=== PATIENT | female | born 1950 | race American Indian/Alaskan Native ===

== ENCOUNTER 2019-04-10 10:32 | Emergency (ER) | payer MEDICARE ==
[2019-04-10 10:57] VITALS: BP 160/76
--- NOTE | 2019-04-10 11:10 | Emergency Department Report ---
Chief Complaint: Upper Respiratory Infection Stated Complaint: FLU LIKE SYMPTOMS/SOB Time Seen by Provider: 04/10/19 10:55 - HPI History of Present Illness: 68 y/o female comes in for 1 day history of cold like symptom. Has no fever good appetite. History of cholesterol. Mild cough and laryngitis. Has only took1 dose of OTC cold medicine. - Exam Vital Signs: Vital Signs 04/10/19 10:55 Temperature 98 F Pulse Rate 104 H Respiratory 18 Rate Blood Pressure 160/76 O2 Sat by Pulse 99 Oximetry Physical Exam: AxO times 3 Heart: RRR pulse 96 Resp: CTA no coughing. Throat non erythmatous non edematous. Psych: stable mood. MSE screening note: Focused history and physical exam performed. Due to findings the following was ordered: Discuss with patient to increase fluids, Take OTC cold and flu medicine. Throat rest and warm salt gargles. ED Disposition for MSE Clinical Impression: Allergic rhinitis Qualifiers: Allergic rhinitis trigger: other Allergic rhinitis seasonality: unspecified Qualified Code(s): J30.89 - Other allergic rhinitis Disposition: DC-01 TO HOME OR SELFCARE Is pt being admited?: No Does the pt Need Aspirin: No Condition: Stable Instructions: Allergic Rhinitis (ED) Additional Instructions: Increase fluid inatke. Rest throat use warm salt water gargles. Take OTC cold medicine for symptoms. Referrals: Your, Provider [Other] - 3-5 Days
== END 2019-04-10 11:30 | disposition home or self-care (01) ==
LOC: ED 10:32
DX: J30.9 Allergic rhinitis, unspecified (principal); Z88.5 Allergy status to narcotic agent
CPT/HCPCS: 99282

== ENCOUNTER 2021-01-21 14:15 | Emergency (ER) | payer MEDICARE, BC ==
--- NOTE | 2021-01-21 14:51 | Emergency Department Report ---
Blank Doc - Documentation Documentation: 70-year-old female presents with acute vertigo. Denies any head injuries or t rauma. Exam: Neuro exam unremarkable. No facial drooping. No one-sided weakness. DARNELL. CARINA. 1- This initial assessment/diagnostic orders/clinical plan/ treatment(s) is/are subject to change based on pt's health status, clinical progression and re- assessment by fellow clinical providers in the ED. Further treatment and workup at subsequent clinical provers discretion. Patient/guardians urged not to elope from ED as their condition may be serious if not clinically assessed and managed. 2-labs 3-EKG
[2021-01-21 15:14] LABS: Eosinophils % (Auto) 0.8 % (0.0-4.3); Hematocrit 36.7 % (30.3-42.9); Hemoglobin 12.2 gm/dl (10.1-14.3); Lymphocytes # (Auto) 1.2 K/mm3 (1.2-5.4); Lymphocytes % (Auto) 31.6 % (13.4-35.0); Mean Corpuscular HGB Conc 33 % (30-34); Mean Corpuscular Volume 90 fl (79-97); Monocytes # (Auto) 0.4 K/mm3 (0.0-0.8); Monocytes % (Auto) 9.1 % (0.0-7.3); Platelet Count 244 K/mm3 (140-440); Red Blood Count 4.06 M/mm3 (3.65-5.03); Red Cell Distribution Width 13.3 % (13.2-15.2)
--- NOTE | 2021-01-21 15:21 | XRay Report ---
CHEST 2 VIEWS INDICATION: Chest Pain. COMPARISON: None FINDINGS: SUPPORT DEVICES: None. HEART: Within normal limits. LUNGS/PLEURA: No acute air space or interstitial disease. No pneumothorax. ADDITIONAL FINDINGS: None. IMPRESSION: 1. No acute findings. Signer Name: Nikolai Egan MD Signed: 01/21/2021 3:17 PM Workstation Name: [id number]
[2021-01-21 15:23] LABS: INR 1.03 (0.87-1.13)
[2021-01-21 15:24] LABS: Partial Thromboplastin Time 29.5 Sec. (24.2-36.6)
[2021-01-21 15:37] LABS: Alanine Aminotransferase 20 units/L (7-56); Albumin 4.5 g/dL (3.9-5); BUN/Creatinine Ratio 18; Blood Urea Nitrogen 16 mg/dL (7-17); Calcium 9.9 mg/dL (8.4-10.2); Hemolysis Index 19
--- NOTE | 2021-01-21 17:12 | Emergency Department Report ---
ED General Adult HPI - General Chief complaint: Dizziness Stated complaint: LT EAR PAIN Time Seen by Provider: 01/21/21 14:48 Source: patient Mode of arrival: Ambulatory Limitations: No Limitations - History of Present Illness Initial comments: This is a 60-year-old female who is apparently hard of hearing with a history of chronic tinnitus. She states that she has been to "3 ear doctors in the past" but is not currently under the care of any. She wants me to "check her ears". She states that when she wakes up in the morning she sees the room spinning around when she gets up. The symptoms of vertigo last for less than a minute. This has been happening for the last 3 days. Subsequently during the day she feels a bit "lightheaded". She has had no problems with her gait or coordination. He is now had no problems with weakness or numbness of the arms or legs or difficulty with her speech. She does not report similar symptoms in the past. She does not report headache. -: Gradual, days(s) - Related Data Allergies Allergy/AdvReac Type Severity Reaction Status Date / Time codeine Allergy Vomiting Verified 04/10/19 10:41 ED Review of Systems ROS: Stated complaint: LT EAR PAIN Other details as noted in HPI Constitutional: denies: chills, fever Eyes: denies: eye pain, vision change ENT: hearing loss. denies: ear pain, throat pain Respiratory: denies: cough, shortness of breath, wheezing Cardiovascular: denies: chest pain, palpitations Endocrine: no symptoms reported Gastrointestinal: denies: abdominal pain, nausea, diarrhea Genitourinary: denies: urgency, dysuria Musculoskeletal: denies: back pain, joint swelling Skin: denies: rash, lesions Neurological: vertigo. denies: headache, weakness, numbness, paresthesias, confusion, abnormal gait Psychiatric: denies: anxiety, depression Hematological/Lymphatic: denies: easy bleeding, easy bruising ED Past Medical Hx - Past Medical History Previous Medical History?: Yes Additional medical history: Hypercholesterolemia, tinnitis,vertigo,sinus allerg ies - Social History Smoking Status: Never Smoker Substance Use Type: None ED Physical Exam - General Limitations: No Limitations General appearance: alert, in no apparent distress - Head Head exam: Present: atraumatic, normocephalic - Eye Eye exam: Present: normal appearance. Absent: scleral icterus - ENT ENT exam: Present: mucous membranes moist, other (Left TM appears normal, right TM has obstructing cerumen) - Neck Neck exam: Present: normal inspection, other (No bruit). Absent: tenderness, meningismus - Respiratory Respiratory exam: Present: normal lung sounds bilaterally. Absent: respiratory distress - Cardiovascular Cardiovascular Exam: Present: regular rate, normal rhythm. Absent: systolic murmur, diastolic murmur, rubs, gallop - GI/Abdominal GI/Abdominal exam: Present: soft, normal bowel sounds. Absent: distended, tenderness, guarding, rebound - Extremities Exam Extremities exam: Present: normal inspection - Back Exam Back exam: Present: normal inspection - Neurological Exam Neurological exam: Present: alert, oriented X3, CN II-XII intact, normal gait, other (Negative nystagmus). Absent: motor sensory deficit - Psychiatric Psychiatric exam: Present: normal affect, normal mood - Skin Skin exam: Present: warm, dry, intact, normal color. Absent: rash ED Course Vital Signs 01/21/21 01/21/21 14:38 17:13 Temperature 98.2 F Pulse Rate 93 H 86 Respiratory 18 16 Rate Blood Pressure 147/76 170/92 [Right] O2 Sat by Pulse 100 99 Oximetry ED Medical Decision Making - Lab Data Result diagrams: 01/21/21 14:59 01/21/21 14:59 Laboratory Results - last 24 hr 01/21/21 01/21/21 01/21/21 14:59 14:59 14:59 WBC 3.9 L RBC 4.06 Hgb 12.2 Hct 36.7 MCV 90 MCH 30 MCHC 33 RDW 13.3 Plt Count 244 Lymph % (Auto) 31.6 [place] % (Auto) 9.1 H Eos % (Auto) 0.8 Baso % (Auto) 1.0 Lymph # (Auto) 1.2 [place] # (Auto) 0.4 Eos # (Auto) 0.0 Baso # (Auto) 0.0 Seg Neutrophils % 57.5 Seg Neutrophils # 2.3 PT 13.4 INR 1.03 APTT 29.5 Sodium 138 Potassium 4.2 Chloride 101.9 Carbon Dioxide 23 Anion Gap 17 BUN 16 Creatinine 0.9 Estimated GFR > 60 BUN/Creatinine Ratio 18 Glucose 113 H Calcium 9.9 Total Bilirubin 0.30 AST 19 ALT 20 Alkaline Phosphatase 121 Troponin T < 0.010 Total Protein 7.4 Albumin 4.5 Albumin/Globulin Ratio 1.6 - Radiology Data Radiology results: report reviewed (Chest x-ray no acute process) CT the head no acute abnormality Critical care attestation.: If time is entered above; I have spent that time in minutes in the direct care of this critically ill patient, excluding procedure time. ED Disposition Clinical Impression: Impacted cerumen, right ear, Vertigo Disposition: TO HOME OR SELFCARE Is pt being admited?: No Does the pt Need Aspirin: No Condition: Stable Instructions: Earwax Buildup, Adult, Ear Drops, Adult, [id number], Dizziness, [id number] Additional Instructions: I would recommend a baby aspirin every night. I would recommend that you consult with an ENT physician such as the one listed. Follow-up with your primary care physician as well is recommended. Referrals: MITCH MONGE MD [Referring] - 3-5 Days AMINATA BROOKE MD [Staff Physician] - 2-3 Days [facility] [Provider Group] - 3-5 Days Time of Disposition: 18:09
--- NOTE | 2021-01-21 17:36 | Cat Scan Report ---
CT head without contrast HISTORY: vertigo. TECHNIQUE: Axial imaging performed from the skull apex through the skull base without the use of con trast. All CT scans at this location are performed using CT dose reduction for ALARA by means of aut omated exposure control. COMPARISON: None FINDINGS: Parenchyma: No acute intracranial hemorrhage or parenchymal abnormality. Ventricles: There is mild diffuse brain atrophy with commensurate ventricular enlargement which is l ikely age appropriate. Soft tissues: Soft tissues including the orbits appear normal. Bones: No acute osseous abnormality. Sinuses: Sinuses and mastoid air cells are clear. IMPRESSION: No acute abnormality. Signer Name: Nikolai Egan MD Signed: 01/21/2021 5:32 PM Workstation Name: [id number]
[2021-01-21 18:28] VITALS: BP 168/74
--- NOTE | 2021-01-22 21:44 | Electrocardiograph Report ---
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
== END 2021-01-21 18:35 | disposition home or self-care (01) ==
LOC: ED 14:15
DX: H61.21 Impacted cerumen, right ear (principal); R42 Dizziness and giddiness; R79.1 Abnormal coagulation profile; E78.00 Pure hypercholesterolemia, unspecified; Z88.5 Allergy status to narcotic agent; Z79.899 Other long term (current) drug therapy
CPT/HCPCS: 36415; 70450; 71046; 80053; 84484; 85025; 85610; 85730; 93005; 99284

== ENCOUNTER 2021-11-02 09:37 | Emergency (ER) | payer MEDICARE, BC ==
--- NOTE | 2021-11-02 10:42 | Emergency Department Report ---
ED General Adult HPI - General Chief complaint: Skin/Abscess/Foreign Body Stated complaint: RASH ON SHOULDER Time Seen by Provider: 11/02/21 10:16 Source: patient Mode of arrival: Ambulatory Limitations: No Limitations - History of Present Illness Initial comments: 70-year-old -[place] female patient with history of hypertension and HLD presents with complaints of rash to the left mid/upper back x5 days. Patient states it began with pain in the area and then became very itchy. She denies having her shingles vaccination. She denies any drainage, fever/chills/sweats, spinal back pain, or IV drug use. No pain at current per patient. -: Sudden - Related Data Previous Rx's Medication Instructions Recorded Last Taken Type Triamcinolone Acetonide 1 applic TP TID PRN 7 Days #1 tube 11/02/21 Unknown Rx Valacyclovir HCl [Valacyclovir] 1,000 mg PO Q8H 7 Days #21 tab 11/02/21 Unknown Rx Allergies Allergy/AdvReac Type Severity Reaction Status Date / Time codeine Allergy Vomiting Verified 04/10/19 10:41 ED Review of Systems ROS: Stated complaint: RASH ON SHOULDER Other details as noted in HPI Constitutional: denies: chills, fever Respiratory: denies: cough Cardiovascular: denies: chest pain Skin: rash. denies: change in color Neurological: denies: headache, numbness, paresthesias ED Past Medical Hx - Past Medical History Hx Arthritis: Yes Additional medical history: Hypercholesterolemia, tinnitis,vertigo,sinus allergies - Social History Smoking Status: Never Smoker Substance Use Type: None - Medications Home Medications: Home Medications Medication Instructions Recorded Confirmed Last Taken Type Triamcinolone Acetonide 1 applic TP TID PRN 7 Days #1 tube 11/02/21 Unknown Rx Valacyclovir HCl [Valacyclovir] 1,000 mg PO Q8H 7 Days #21 tab 11/02/21 Unknown Rx ED Physical Exam - General Limitations: No Limitations General appearance: alert, in no apparent distress - Head Head exam: Present: atraumatic, normocephalic - Eye Eye exam: Present: normal appearance - Respiratory Respiratory exam: Absent: respiratory distress - Cardiovascular Cardiovascular Exam: Present: regular rate - Neurological Exam Neurological exam: Present: alert, oriented X3 - Psychiatric Psychiatric exam: Present: normal affect, normal mood - Skin Skin exam: Present: warm, dry, intact, rash (Dry flat scattered maculopapular type rash noted to left mid/upper thoracic area in the T4/T5 dermatome distribution; no cellulitic changes noted or drainage noted; rash is nontender) ED Course Vital Signs 11/02/21 09:50 Temperature 98.2 F Pulse Rate 104 H Respiratory 16 Rate Blood Pressure 145/75 [Left] O2 Sat by Pulse 99 Oximetry ED Medical Decision Making - Medical Decision Making 70-year-old -[place] female patient with history of hypertension and HLD presents with complaints of rash to the left mid/upper back x5 days. Patient states it began with pain in the area and then became very itchy. She denies having her shingles vaccination. She denies any drainage, fever/chills/sweats, spinal back pain, or IV drug use. No pain at current per patient. Rash appears to be consistent with shingles. Will treat with valacyclovir and triamcinolone as needed for itching. Recommend follow-up as scheduled with PCP this coming Friday. She is otherwise well-appearing, her vitals are within normal limits, she is stable for discharge home. Discussed in detail signs and symptoms that should prompt immediate return to ED with patient who verbalizes understanding Critical care attestation.: If time is entered above; I have spent that time in minutes in the direct care of this critically ill patient, excluding procedure time. ED Disposition Clinical Impression: Herpes zoster Disposition: HOME / SELF CARE / HOMELESS Is pt being admited?: No Condition: Stable Instructions: Shingles, [id number] Prescriptions: Triamcinolone Acetonide 1 applic TP TID PRN 7 Days #1 tube PRN Reason: Itching Valacyclovir HCl [Valacyclovir] 1,000 mg PO Q8H 7 Days #21 tab Referrals: PRIMARY CARE, [Referring] - 3-5 Days Forms: Work/School Release Form(ED)
[2021-11-02 11:11] VITALS: BP 145/77
== END 2021-11-02 11:07 | disposition home or self-care (01) ==
LOC: ED 09:37
DX: B02.9 Zoster without complications (principal); M19.90 Unspecified osteoarthritis, unspecified site
CPT/HCPCS: 99282